=== PATIENT | female | born 1960 | race Caucasian/White ===

== ENCOUNTER 2018-12-13 09:18 | Emergency (ER) | payer MEDICARE ==
[~2018-12-13] VITALS: Ht 160 cm; Wt 134.0 kg
[2018-12-13 09:31] VITALS: BP 162/81
[2018-12-13] MEDS ORDERED: AMLO10TA8 PO (09:55)
[2018-12-13] MEDS ORDERED: LISI-167 PO (09:55)
[2018-12-13] MEDS ORDERED: FURO-92 PO (09:55)
[2018-12-13] MEDS ORDERED: METO25TA35 PO (09:55)
[2018-12-13] MEDS ORDERED: ALBU0.63 INH (09:55)
[2018-12-13] MEDS ORDERED: OMEP-110 PO (09:55)
--- NOTE | 2018-12-13 09:57 | NUR ---
Patient/Caregiver given discharge instructions and they have confirmed that they understand the instructions. Patient ambulatory with steady gait.
== END 2018-12-13 10:12 | disposition home or self-care (01) ==
LOC: ED 10:00
DX: K08.89 Other specified disorders of teeth and supporting structures (principal); J45.909 Unspecified asthma, uncomplicated; I11.0 Hypertensive heart disease with heart failure; I50.9 Heart failure, unspecified; Z88.8 Allergy status to other drugs, medicaments and biological substances; Z88.2 Allergy status to sulfonamides
CPT/HCPCS: 99283

== ENCOUNTER 2018-12-22 14:27 | Emergency (ER) | payer MEDICARE ==
[~2018-12-22] VITALS: Ht 157.5 cm; Wt 130.0 kg
[~2018-12-22 14:27] MED LIST: ALBU0.63 INH; AMLO10TA8 PO; FURO-92 PO; LISI-167 PO; METO25TA35 PO; OMEP-110 PO
--- NOTE | 2018-12-22 15:13 | NUR ---
PT REPORTS SHE WAS BROUGHT INTO HOSPITAL BY EMS. PT REPORTS SPASMING MUSCLE WITH PAIN RADIATING INTO LEFT SHOULDER, LEFT CHEST, AND LEFT POSTERIOR BACK. PT C/O 10/10 PAIN.
--- NOTE | 2018-12-22 15:14 | NUR ---
AT BEDSIDE FOR EXAM.
[2018-12-22] MEDS ORDERED: METHOCARBAMOL 750 MG TABLET PO ONE (15:30)
[2018-12-22] MEDS ORDERED: KETOROLAC 30 MG/1 ML IM ONE (15:30)
[2018-12-22] MEDS ORDERED: KETOROLAC 30 MG/1 ML ONE (15:37)
[2018-12-22] MEDS ORDERED: METHOCARBAMOL 750 MG TABLET ONE (15:37)
--- NOTE | 2018-12-22 16:19 | NUR ---
PT STATES SHE HAS HAD NO RELIEF WITH THE PAIN MEDICATION. DR. WALKER UPDATED.
[2018-12-22 16:45] VITALS: BP 157/79
--- NOTE | 2018-12-22 16:46 | NUR ---
Patient/Caregiver given discharge instructions and they have confirmed that they understand the instructions. Patient ambulatory with steady gait to wheelchair. Taxi Voucher provided
== END 2018-12-22 16:47 | disposition home or self-care (01) ==
LOC: ED 16:07
DX: M62.830 Muscle spasm of back (principal); M62.838 Other muscle spasm; J45.909 Unspecified asthma, uncomplicated; I11.0 Hypertensive heart disease with heart failure; I50.9 Heart failure, unspecified; E66.9 Obesity, unspecified; Z68.43 Body mass index [BMI] 50.0-59.9, adult; Z87.891 Personal history of nicotine dependence
CPT/HCPCS: 93005; 96372; 99283; J1885

== ENCOUNTER 2018-12-27 08:14 | Emergency (ER) | payer MEDICARE ==
[~2018-12-27] VITALS: Ht 154.9 cm; Wt 131.0 kg
[2018-12-27 08:27] VITALS: BP 164/71
--- NOTE | 2018-12-27 08:32 | NUR ---
ATORVASTATIN REMOVED FROM ALLERGY LIST. PT STATES "I NEVER SAID I'M ALLERGIC TO THAT"
[2018-12-27] MEDS ORDERED: ASPIRIN 81 MG TABLET CHEW PO ONE (09:00)
[2018-12-27] MEDS ORDERED: CYCLOBENZAPRINE 10 MG TABLET PO ONE (09:00)
[2018-12-27] MEDS ORDERED: KETOROLAC 30 MG/1 ML IM ONE (09:00)
[2018-12-27 09:15] LABS: BASOPHILS # (AUTO) 0.07 x10^3/uL (0-0.1); BASOPHILS % (AUTO) 1 % (0-1); EOSINOPHILS # (AUTO) 0.22 x10^3/uL (0-0.4); EOSINOPHILS % (AUTO) 2 % (1-7); LYMPHOCYTES # (AUTO) 1.81 x10^3/uL (1-3.4); LYMPHOCYTES % (AUTO) 20 % (22-44); MD NO; MEAN CORPUSCULAR HEMOGLOBIN 25.4 pg (27.0-34.8); MEAN CORPUSCULAR HGB CONC 32.1 g/dL (32.4-35.8); MEAN CORPUSCULAR VOLUME 79.1 fL (80-100); MEAN PLATELET VOLUME 8.8 fL (7.4-10.4); MONOCYTES # (AUTO) 0.46 x10^3/uL (0.2-0.8); MONOCYTES % (AUTO) 5 % (2-9); NEUTROPHILS % (AUTO) 72 % (42-75); PLATELET COUNT 344 x10^3/uL (130-400); RED BLOOD COUNT 5.57 x10^6/uL (3.82-5.3); RED CELL DISTRIBUTION WIDTH 14.9 % (9.6-15.2)
--- NOTE | 2018-12-27 09:18 | NUR ---
muscle spasms on the left shoulder/arm/ribs area. pt recieved muscle relaxers and anti-inflammatories 7 days ago and pt reports they did not work. pt presents to ED becuase pain/spasms has not stopped
[2018-12-27 09:25] LABS: ALBUMIN 3.4 g/dL (3.4-5.0); ANION GAP 8 mmol/L (5-15); CALCIUM 8.7 mg/dL (8.5-10.1); CHLORIDE 108 mmol/L (98-107)
[2018-12-27] MEDS ORDERED: CYCLOBENZAPRINE 10 MG TABLET ONE (09:25)
[2018-12-27] MEDS ORDERED: ASPIRIN 81 MG TABLET CHEW ONE (09:25)
[2018-12-27] MEDS ORDERED: KETOROLAC 30 MG/1 ML ONE (09:25)
--- NOTE | 2018-12-27 09:26 | NUR ---
pt to xray
[2018-12-27 09:31] LABS: CREATININE 1.04 mg/dL (0.55-1.02); TROPONIN I < 0.015 ng/mL (0.000-0.045)
--- NOTE | 2018-12-27 09:48 | NUR ---
pt medicated per emar
== END 2018-12-27 10:40 | disposition home or self-care (01) ==
LOC: ED 10:19
DX: S29.011A Strain of muscle and tendon of front wall of thorax, initial encounter (principal); J45.909 Unspecified asthma, uncomplicated; I11.0 Hypertensive heart disease with heart failure; I50.9 Heart failure, unspecified; E11.9 Type 2 diabetes mellitus without complications; F20.0 Paranoid schizophrenia; Z87.891 Personal history of nicotine dependence; X58.XXXA Exposure to other specified factors, initial encounter; Y93.89 Activity, other specified; Y92.89 Other specified places as the place of occurrence of the external cause; Y99.8 Other external cause status
CPT/HCPCS: 36415; 71046; 80048; 82040; 83880; 84484; 85025; 93005; 96372; 99284; J1885